=== PATIENT | female | born 2000 | race Hispanic/Latino ===

== ENCOUNTER 2023-07-12 08:07 | Emergency (ER) | payer SELFPAY ==
[2023-07-12] MEDS ORDERED: Lorazepam 2 MG/ML VIAL ONE (08:44)
== END 2023-07-12 10:13 | disposition home or self-care (01) ==
LOC: NAV ERS 08:07
DX: F41.0 Panic disorder [episodic paroxysmal anxiety] (principal); M54.6 Pain in thoracic spine
CPT/HCPCS: 93005; 96372; J2060